=== PATIENT | female | born 1930 | race Caucasian/White ===

== ENCOUNTER 2017-02-03 13:01 | Emergency (ER) | payer MEDICARE, OTHER ==
[2017-02-03 14:08] LABS: #Basophils 0.1 thou/uL (0.0-0.2); #Lymphocytes 1.3 thou/uL (1.20-3.40); #Monocytes 1.1 thou/uL (0.11-0.59); #Neutrophils 8.3 thou/uL (1.40-6.50); %Basophils 1.1 % (0.0-1.0); %Eosinophils 0.2 % (0.0-10.0); %Monocytes 10.4 % (0.0-10.0); %Neutrophils 76.3 % (42.0-75.0); Hemoglobin 11.7 g/dL (12.0-16.0); Mean Corpuscular HGB CONC 34.5 g/dL (32.0-36.0); Mean Corpuscular Hemoglobin 31.2 pg (27.0-31.0); Mean Corpuscular Volume 90.3 fl (81.0-99.0); Mean Platelet Volume 7.1 fL (7.4-10.4); Platelet Count 211 thou/uL (130-400); RBC Distribution Width 11.1 % (11.5-14.5); Red Blood Cell (RBC) Count 3.76 mill/uL (4.20-5.40); White Blood Cell (WBC) Count 10.8 thou/uL (4.8-10.8)
[2017-02-03 14:20] LABS: ALT (SGPT) 10 U/L (0-55); AST (SGOT) 17 U/L (5-34); Albumin 3.9 g/dL (3.4-4.8); Alkaline Phosphatase 64 U/L (40-150); Anion Gap 15 mmol/L (10-20); BUN (Urea Nitrogen) 10 mg/dL (9.8-20.1); Bilirubin, Total 0.4 mg/dL (0.2-1.2); Calc. Creatinine Clearance 0 mL/min (70-130); Calcium 9.4 mg/dL (7.8-10.44); Carbon Dioxide 30 mmol/L (23-31); Chloride 90 mmol/L (98-107); Estimated GFR-MDRD 59; Globulin 2.9 g/dL (2.4-3.5); Glucose 121 mg/dL (83-110); Protein, Total 6.8 g/dL (5.8-8.1); Sodium 131 mmol/L (136-145)
--- NOTE | 2017-02-03 14:26 | RAD ---
PA AND LATERAL VIEWS OF CHEST: Date: 02/03/17 HISTORY: Cough. FINDINGS: The heart size is normal. The aorta is tortuous. The lungs are well expanded without focal areas of consolidation, pneumothorax, or pleural effusions. IMPRESSION: No radiographic evidence of acute cardiopulmonary process. POS: [facility]
== END 2017-02-03 16:10 | disposition home or self-care (01) ==
LOC: MADERS 13:01
DX: J20.9 Acute bronchitis, unspecified (principal); I10 Essential (primary) hypertension; Z79.899 Other long term (current) drug therapy
CPT/HCPCS: 36415; 71020; 80053; 83880; 85025; J7620